=== PATIENT | male | born 1950 | race Caucasian/White ===

== ENCOUNTER 2017-11-04 06:40 | Day surgery (SDC) | payer MEDICARE ==
[~2017-11-04] VITALS: Ht 177.8 cm; Wt 65.8 kg
[~2017-11-04 06:40] MED LIST: ADULT ASPIRIN E81 MG PO; ALPRAZOLAM0.25 MG PO; ATORVASTATIN CA80 MG PO; AUGMENTIN875TAB PO; COUMADIN5 MG PO; FUROSEMIDE20 MG PO; LEVEMIR100 UNIT/M SC; LISINOPRIL2.5 MG PO; METFORMIN500 MG PO; METOPROL TAR25 MG PO; METRONIDAZOL500 MG PO; NO HOME MEDS
[2017-11-04] MEDS ORDERED: CARAFATE1 GM PO (10:08)
[2017-11-04] MEDS ORDERED: PROTONIX40 M2 PO (10:08)
[2017-11-04 11:00] VITALS: BP 113/76
== END 2017-11-04 10:30 | disposition home or self-care (01) ==
LOC: ENDO 06:40 → ORM 13:45 → ENDO 13:45
PROVIDERS: ATTEND Surgery
PROC: 0DB78ZX Excision of Stomach, Pylorus, Via Natural or Artificial Opening Endoscopic, Diagnostic (ICD-10-PCS; principal; 2017-11-04)
PROC: 0DJD8ZZ Inspection of Lower Intestinal Tract, Via Natural or Artificial Opening Endoscopic (ICD-10-PCS; 2017-11-04)
DX: R63.4 Abnormal weight loss (principal); K29.50 Unspecified chronic gastritis without bleeding; K57.30 Diverticulosis of large intestine without perforation or abscess without bleeding; R68.81 Early satiety; R11.0 Nausea; R10.13 Epigastric pain; I25.10 Atherosclerotic heart disease of native coronary artery without angina pectoris; Z95.1 Presence of aortocoronary bypass graft

== ENCOUNTER → 2018-04-28 | Outpatient (REF) | payer MEDICARE ==
[~2018-04-28] MED LIST changes: +CARAFATE1 GM PO; +PROTONIX40 M2 PO
[2018-04-28 11:24] LABS: HEMATOCRIT 39.4 % (39.0-50.0); HEMOGLOBIN 12.4 g/dl (14.0-18.0); MEAN CELL VOLUME 74.2 fL CALC (80.0-100.0); MEAN CORPUSCULAR HGB 23.4 pG CALC (26.0-32.0); MEAN CORPUSCULAR HGB CONC 31.5 g/L CALC (32.0-36.0); RED BLOOD COUNT 5.31 mill/uL (4.70-6.10); RED CELL DISTRI WIDTH 16.2 % (11.5-15.5)
[2018-04-28 12:17] LABS: ALBUMIN 3.8 g/dL (3.2-5.0); ANION GAP 14 (6-22 (CALC)); BILIRUBIN, TOTAL 0.9 mg/dL (0.0-1.4); BUN 13 mg/dL (8-23); BUN/CREATININE RATIO 21 (12-20 (CALC)); CALCULATED LDLCHOLESTEROL 44 mg/dL (62-129 (CALC)); CARBON DIOXIDE 24 mmol/l (22-30); CHLORIDE 104 mmol/l (95-108); CHOLESTEROL HDL RATIO 2.5 (<4.4 (CALC)); CREATININE 0.7 mg/dL (0.7-1.3); GFR > 60 ML/MIN (>=60 (CALC)); GFR FOR AFR.AMER. > 60 ML/MIN (>=60 (CALC)); HDL CHOLESTEROL 39 mg/dL (>=40); POTASSIUM 4.4 mmol/l (3.5-5.1); SGOT/AST 24 u/l (19-48); SODIUM 138 mmol/l (137-146); TOTAL CHOLESTEROL 98 mg/dl (0-199); TOTAL PROTEIN 7.6 g/dL (6.3-8.2); TOTAL TRIGLYCERIDES 71 mg/dl (30-149); VLDL CHOLESTROL 14 mg/dl (4-45 (CALC))
[2018-04-28 12:25] LABS: ALKALINE PHOSPHATASE 158 u/l (38-126)
[2018-04-28 12:47] LABS: TSH, 3RD GENERATION 1.06 uIU/mL (0.47 - 4.68)
== END | disposition home or self-care (01) ==
LOC: DI 10:23
PROVIDERS: ATTEND Nurse Practitioner
DX: M54.6 Pain in thoracic spine (principal); R07.81 Pleurodynia; I73.9 Peripheral vascular disease, unspecified; I50.22 Chronic systolic (congestive) heart failure; E11.40 Type 2 diabetes mellitus with diabetic neuropathy, unspecified

== ENCOUNTER → 2018-05-13 | Outpatient (REF) | payer MEDICARE | END | disposition home or self-care (01) | LOC: ULTRASND 10:45 | PROVIDERS: ATTEND Surgery Vascular Surgery | DX: I70.235 Atherosclerosis of native arteries of right leg with ulceration of other part of foot (principal) ==

== ENCOUNTER 2021-09-23 16:20 | Emergency (ER) | payer MEDICARE ==
[~2021-09-23] VITALS: Ht 177.8 cm; Wt 85.9 kg
[2021-09-23] VITALS (12 sets, daily range): BP systolic 112–127; BP diastolic 71–84
[2021-09-23 16:39] LABS: HEMATOCRIT 43.5 % (39.0-50.0); HEMOGLOBIN 13.6 g/dl (14.0-18.0); IMMATURE GRANULOCYTES 0.8 % (0.0-5.0); MEAN CELL VOLUME 78.9 fL CALC (80.0-100.0); MEAN CORPUSCULAR HGB 24.7 pG CALC (26.0-32.0); MEAN CORPUSCULAR HGB CONC 31.3 g/dL CAL (32.0-36.0); NEUT# 4.26 thou/uL (1.82-7.42); RED BLOOD COUNT 5.51 mill/uL (4.70-6.10); RED CELL DISTRI WIDTH 14.8 % (11.5-15.5)
[2021-09-23 16:53] LABS: URINE BILIRUBIN - DIPSTICK NEGATIVE (NEGATIVE); URINE BLOOD DIPSTICK MODERATE (NEGATIVE); URINE COLOR YELLOW; URINE GLUCOSE - DIPSTICK NEGATIVE (NEGATIVE); URINE KETONE NEGATIVE (NEGATIVE); URINE LEUK ESTERASE NEGATIVE (NEGATIVE); URINE PH 5.5 (4.5-8.0); URINE PROTEIN - DIPSTICK NEGATIVE (NEG-TRACE); URINE SPECIFIC GRAVITY 1.025
[2021-09-23 16:57] LABS: ALBUMIN 4.1 g/dL (3.2-5.0); ALKALINE PHOSPHATASE 109 u/l (38-126); ANION GAP 12 (6-22 (CALC)); BILIRUBIN, TOTAL 1.3 mg/dL (0.0-1.4); BUN 16 mg/dL (8-23); BUN/CREATININE RATIO 14 (12-20 (CALC)); CARBON DIOXIDE 27 mmol/l (22-30); CHLORIDE 102 mmol/l (95-108); CREATININE 1.2 mg/dL (0.7-1.3); GFR FOR AFR.AMER. > 60 ML/MIN (>=60 (CALC)); GFR OTHER RACES 60 ML/MIN (>=60 (CALC)); LIPASE 45 u/l (23-300); POTASSIUM 3.8 mmol/l (3.5-5.1); SGOT/AST 29 u/l (19-48); SODIUM 138 mmol/l (137-146); TOTAL PROTEIN 8.3 g/dL (6.3-8.2)
[2021-09-23 16:58] LABS: URINE NITRITE - DIPSTICK NEGATIVE (Negative)
[2021-09-23 17:00] LABS: INTERNATIONAL NORMALIZED RATIO 1.1 RATIO (0.7-1.3); PROTHROMBIN TIME 11.3 SECONDS (9.0-12.5)
[2021-09-23 17:05] LABS: URINE WBC 0-2 WBC/hpf (0-5)
[2021-09-23 17:09] LABS: MYOGLOBIN 107 ng/mL (0 - 121)
[2021-09-23] MEDS ORDERED: BUMETANIDE1 MG PO (17:14)
[2021-09-23] MEDS ORDERED: LEVEMIR FL100 UNIT/M SC (17:16)
[2021-09-23] MEDS ORDERED: CLOPIDOGREL75 MG PO (17:17)
[2021-09-23] MEDS ORDERED: CARVEDILOL6.25 MG PO (17:18)
[2021-09-23] MEDS ORDERED: HYDROXYZ HCL10 MG PO (17:19)
[2021-09-23] MEDS ORDERED: INSULIN LI100 UNIT/M (17:22)
[2021-09-23] MEDS ORDERED: LYRICA100 MG PO (17:23)
== END 2021-09-23 19:03 | disposition left against medical advice (07) ==
LOC: ED 16:20
PROVIDERS: Nurse Practitioner
DX: R07.9 Chest pain, unspecified (principal); I11.0 Hypertensive heart disease with heart failure; I50.9 Heart failure, unspecified; I25.10 Atherosclerotic heart disease of native coronary artery without angina pectoris; E11.9 Type 2 diabetes mellitus without complications; I25.2 Old myocardial infarction; F17.200 Nicotine dependence, unspecified, uncomplicated; Z86.73 Personal history of transient ischemic attack (TIA), and cerebral infarction without residual deficits; Z91.19 Patient's noncompliance with other medical treatment and regimen; Z87.01 Personal history of pneumonia (recurrent); Z95.1 Presence of aortocoronary bypass graft; Z95.0 Presence of cardiac pacemaker; Z95.5 Presence of coronary angioplasty implant and graft; Z79.4 Long term (current) use of insulin; Z20.822 Contact with and (suspected) exposure to COVID-19